=== PATIENT | male | born 2000 | race Caucasian/White ===

== ENCOUNTER 2022-06-19 10:04 | Emergency (ER) | payer SELFPAY ==
[2022-06-19] MEDS ORDERED: Hydrocortisone Sodium Succinate 100 MG/2 ML SDV IVPUSH ONE (12:39)
== END 2022-06-19 12:59 | disposition home or self-care (01) ==
LOC: JD.ED 10:04
DX: N50.3 Cyst of epididymis (principal)
CPT/HCPCS: 36415; 76870; 76870-26; 80053; 81001; 85025; 93975; 99284